=== PATIENT | female | born 1965 | race Caucasian/White ===

== ENCOUNTER 2016-09-29 05:30 | Day surgery (SDC) | payer OTHER ==
[~2016-09-29] VITALS: Ht 157.5 cm; Wt 70.0 kg
[2016-09-29] VITALS (10 sets, daily range): BP systolic 100–150; BP diastolic 57–78; PULSE 65–88; RESP 12–18; Ht 157.5 cm; Wt 70.0 kg
[2016-09-29] MEDS ORDERED: SEVOFLURANE 15 MIN ONE (07:00)
[2016-09-29] MEDS ORDERED: LIDOCAINE 2% (SDV) 5 ML INJ ONE (07:00)
[2016-09-29] MEDS ORDERED: LORA10CA PO (07:19)
[2016-09-29] MEDS ORDERED: LISI2.5T59 PO (07:19)
[2016-09-29] MEDS ORDERED: FER325 PO (07:20)
--- NOTE | 2016-09-29 07:32 | PREOPHP ---
DATE OF ADMISSION: 09/29/2016 HISTORY OF PRESENT ILLNESS: This is a 51-year-old lady, 2, para 2. Her last normal menstrual period was many months ago. She was admitted for D and C, hysteroscopy, possible suction curettage. This patient had been bleeding on and off for the last 1 year and getting worse up to the time of admission. She went to [facility] and she had endometrial biopsy done and the endometrial biopsy showed purdy-sheeba reaction. She continued to have bleeding after that. She was put on Provera and without the Provera she continued to bleed, so she was admitted for the above procedure. PAST PERSONAL HISTORY: No history of TB, asthma. ALLERGIES: NO ALLERGIES. SOCIAL HISTORY: The patient does not smoke. She does not drink. MEDICATIONS: She takes iron for her anemia and for her high blood pressure. GYNECOLOGICAL HISTORY: She had menarche at the age of 12, every 28 days' interval, 3 to 4 days' duration, and moderate in amount. FAMILY HISTORY: Noncontributory. OBSTETRICAL HISTORY: She is 2, para 2 with 2 normal deliveries. REVIEW OF SYSTEMS: CARDIOVASCULAR: No chest pains. RESPIRATORY: No cough. GASTROINTESTINAL: No diarrhea, no vomiting. GENITOURINARY: No dysuria. PHYSICAL EXAMINATION: GENERAL: Reveals a conscious coherent lady not in acute distress. VITAL SIGNS: Her blood pressure 120/80, pulse rate 80 per minute, respirations 16 per minute. BREASTS: Within normal limits. HEART: Within normal limits. LUNGS: Within normal limits. ABDOMEN: Soft. No organomegaly. PELVIC: Revealed the cervix to be firm, uterus about 12 weeks' size and adnexa were negative for masses. RECTAL: Confirmed the pelvic findings. EXTREMITIES: No pedal edema. ADMITTING DIAGNOSES: 1. Symptomatic fibroid uterus. 2. Menometrorrhagia. 3. Anemia. The patient was planned to have D and C, hysteroscopy and possible suction curettage. The procedures were explained to the patient and she understood everything totally. The risks, benefits and alternatives were discussed with her as well. Dictated By: BRANDAN MENESES/KELSIE Conf#: [id number] DID#: [id number] [facility]
[2016-09-29] MEDS ORDERED: HYDROmorphONE (0.2 MG/ML) 10ML SYG IV PRN ×3 (09:00)
[2016-09-29] MEDS ORDERED: FENTAnyl 50 MCG/ML VIAL IV PRN ×2 (09:00)
[2016-09-29] MEDS ORDERED: DIPHENHYDRAMINE 50 MG INJ IV PRN (09:00)
[2016-09-29] MEDS ORDERED: ONDANSETRON 4 MG INJ IV PRN (09:00)
[2016-09-29] MEDS ORDERED: MEPERIDINE 25 MG INJ IV PRN (09:00)
[2016-09-29] MEDS ORDERED: DEXAMETHASONE 4 MG/ML 1 ML INJ ONE (09:25)
[2016-09-29] MEDS ORDERED: PROPOFOL 20 ML ONE (09:25)
[2016-09-29] MEDS ORDERED: MIDAZOLAM 1 MG/ML 2 ML INJ ONE (09:25)
[2016-09-29] MEDS ORDERED: FENTAnyl 50 MCG/ML VIAL ONE (09:25)
[2016-09-29] MEDS ORDERED: ONDANSETRON 4 MG INJ ONE (09:25)
[2016-09-29] MEDS ORDERED: ACETAMINOPHEN 325 MG TAB PO PRN (10:30)
[2016-09-29] MEDS ORDERED: KETOROLAC 30 MG INJ IV PRN (10:30)
--- NOTE | 2016-09-30 03:24 | OPR ---
DATE OF OPERATION: 09/29/2016 PREOPERATIVE DIAGNOSES: 1. Intramural fibroids. 2. Menometrorrhagia. POSTOPERATIVE DIAGNOSES: 1. Intramural fibroids. 2. Menometrorrhagia. 3. Pending pathology report. SURGEON: Brandan Betts MD EMPLOYEE RELATIONS ASSISTANT: Ana espinal. ANESTHESIA: General. OPERATION PERFORMED: Hysteroscopy, fractional dilatation and curettage, and suction curettage. OPERATIVE TECHNIQUE: Under general anesthesia, the patient was prepped and draped in the usual [facility] ion for vaginal surgery. Pelvic exam under anesthesia revealed the cervix to be firm, uterus of 8 w [place] size, and adnexa were negative for masses. Then, the heavy weight vaginal retractor was put in place and the anterior lip of the cervix was grasped with an Allis clamp. Endocervical dilatation u p to Hegar 6 was proceeded. Uterus was sounded to about 3 inches. Then the hysteroscope was insert ed inside the uterine cavity and connected with a light source and distended with normal saline. Th ere were no polyps, no fibroids seen. Endocervical curettage was performed, and small amount of tis sly was obtained. Endometrial curettage was performed, and small amount of tissue was obtained. Clemons ction tip size 6 was inserted inside the uterine cavity, and suction curettage was done. A good giovana unt of tissue was obtained. The uterus was intact during and after the procedure. The patient tole rated the procedure well. Estimated blood loss was minimal. Vital signs were stable during and aft er the procedure. Dictated By: BRANDAN MENESES/NTS Conf#: [id number] DID#: [id number]
== END 2016-09-29 11:44 | disposition home or self-care (01) ==
LOC: SDS 05:30
PROVIDERS: ATTEND Obstetrics & Gynecology
DX: N92.1 Excessive and frequent menstruation with irregular cycle (principal); D25.1 Intramural leiomyoma of uterus; I10 Essential (primary) hypertension
CPT/HCPCS: 58558; 84702; 86850; 86900; 86901; 88305; J1100; J2250; J2405; J3010; Z7512; Z7610

== ENCOUNTER 2018-01-19 03:20 | Inpatient (IN) | END 2018-01-23 14:00 | disposition home or self-care (01) | DRG 853 ==